=== PATIENT | female | born 1980 | race Caucasian/White ===

== ENCOUNTER 2018-11-10 21:02 | Emergency (ER) | payer MEDICAID, OTHER ==
--- NOTE | 2018-11-10 21:33 | ED Physician Documentation ---
PD HPI ABD PAIN - Stated complaint Stated Complaint: ABD PX - Chief complaint Chief Complaint: Abd Pain - History obtained from History obtained from: Patient - History of Present Illness Timing - onset: Today Timing - duration: Hours Timing - details: Abrupt onset, Still present Quality: Cramping, Aching, Pain Location: RUQ, Epigastric Radiation: Upper back Improved by: No: Vomiting Worsened by: Eating Associated symptoms: Nausea, Vomiting. No: Fever, Diarrhea, Constipation, Dysuria Similar symptoms before: No diagnosis (has had similar less severe and briefer episodes in the past. No diagnosis and had not seen PCP about them. Thought it was "heartburn" or so.) Recently seen: Surgery (surgery left foot/ankle 3 months ago.) Review of Systems Constitutional: denies: Fever, Chills, Myalgias Nose: denies: Rhinorrhea / runny nose, Congestion Throat: denies: Sore throat Cardiac: denies: Chest pain / pressure, Palpitations Respiratory: denies: Cough GI: reports: Abdominal Pain, Nausea, Vomiting. denies: Constipation, Diarrhea, Bloody / black stool : denies: Dysuria, Frequency Skin: denies: Rash, Lesions Musculoskeletal: reports: Back pain Neurologic: reports: Generalized weakness. 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 : None HEENT: None Psych: None Musculoskeletal: Osteoarthritis, Other Derm: None - Past Surgical History Past Surgical History: Yes /INSOLE FILLER: section, Mastectomy HEENT: Tonsil/Adenoidectomy - Present Medications Home Medications: Ambulatory Orders Medication Instructions Recorded Confirmed Ondansetron Odt [Zofran] 4 mg TL Q6H PRN #10 tablet 01/22/16 02/03/16 oxyCODONE/ACET 5/325 [Percocet 5 1 each PO Q4-6H PRN #15 tablet 01/22/16 01/29/16 mg/325 mg] oxyCODONE/ACET 5/325 [Percocet 5 1 - 2 tab PO Q4-6H PRN #20 tablet 01/23/16 02/03/16 mg/325 mg] Ibuprofen 200 mg PO Q6HR 02/03/16 02/03/16 LORazepam [Ativan] 0.5 mg PO Q8H PRN #7 tablet 02/07/16 Oxycodone HCl/Acetaminophen 1 - 2 each PO Q6H PRN #14 tablet 02/07/16 [Percocet 5-325 mg Tablet] Dicyclomine [Bentyl] 10 mg PO QID PRN #20 capsule 11/11/18 Ondansetron Odt [Zofran] 4 mg TL Q6H PRN #10 tablet 11/11/18 Oxycodone HCl/Acetaminophen 1 - 2 each PO Q6H PRN #20 tablet 11/11/18 [Percocet 5-325 mg Tablet] - Allergies Allergies/Adverse Reactions: Allergies Allergy/AdvReac Type Severity Reaction Status Date / Time iv contrast Allergy Unknown Uncoded 11/10/18 21:10 - Social History Does the pt smoke?: No Smoking Status: Never smoker Does the pt drink ETOH?: Yes Does the pt have substance abuse?: No - Immunizations Immunizations are current?: Yes - POLST Patient has POLST: No PD ED PE NORMAL - Vitals Vital signs reviewed: Yes - General General: Alert and oriented X 3, Well developed/nourished, Other (appears uncomfortable, holding upper abd. ) - HEENT HEENT: Pharynx benign - Neck Neck: Supple, no meningeal sign, No adenopathy - Cardiac Cardiac: RRR (slightly tachy.), No murmur - Respiratory Respiratory: Clear bilaterally - Abdomen Abdomen: Soft, Non distended, No organomegaly, Other (decreased bowel sounds. RUQ and epigastric tender with guarding. No percussion tenderness. ) - Female Female : Deferred - Rectal Rectal: Deferred - Back Back: No CVA TTP - Derm Derm: Normal color, Warm and dry - Extremities Extremities: No deformity, No tenderness to palpate - Neuro Neuro: Alert and oriented X 3, No motor deficit, Normal speech Results - Vitals Vitals: Vital Signs - 24 hr 11/10/18 11/10/18 11/10/18 21:06 22:30 23:15 Temperature 36.5 C Heart Rate 105 H 84 82 Respiratory 20 16 18 Rate Blood Pressure 143/91 H 106/74 114/100 H O2 Saturation 7 L 96 97 11/11/18 11/11/18 00:23 01:34 Temperature 36.5 C Heart Rate 74 74 Respiratory 16 18 Rate Blood Pressure 119/74 123/70 O2 Saturation 97 97 Oxygen O2 Source Room air - Labs Labs: Laboratory Tests 11/10/18 11/10/18 11/10/18 22:00 22:00 22:00 WBC 13.7 H RBC 4.43 Hgb 15.4 Hct 43.7 MCV 98.9 MCH 34.7 H MCHC 35.1 RDW 12.7 Plt Count 233 MPV 9.3 Neut # (Auto) 9.6 H Lymph # (Auto) 2.8 [place] # (Auto) 0.6 Eos # (Auto) 0.6 Baso # (Auto) 0.0 Absolute Nucleated RBC 0.01 Nucleated RBC % 0.1 Sodium 137 Potassium 3.6 Chloride 102 Carbon Dioxide 26 Anion Gap 9.0 BUN 14 Creatinine 0.7 Estimated GFR (MDRD) 93 Glucose 123 H Calcium 9.9 Total Bilirubin 0.8 AST 24 ALT 30 Alkaline Phosphatase 81 Total Protein 8.0 Albumin 5.0 Globulin 3.0 Albumin/Globulin Ratio 1.7 Lipase 40 Urine Color YELLOW Urine Clarity CLOUDY Urine pH 6.0 Ur Specific [place] >=1.030 H Urine Protein NEGATIVE Urine Glucose (UA) NEGATIVE Urine Ketones NEGATIVE Urine Occult Blood LARGE H Urine Nitrite NEGATIVE Urine Bilirubin NEGATIVE Urine Urobilinogen 0.2 (NORMAL) Ur Leukocyte Esterase NEGATIVE Urine RBC 6-10 H Urine WBC 0-3 Ur Squamous Epith Cells FEW Squamous Urine Bacteria Rare Ur Microscopic Review INDICATED Urine Culture Comments NOT INDICATED Urine HCG, Qual NEGATIVE - Rads (name of study) abd U/S Radiology: Prelim report reviewed (gallstones, with thickened gallbladder wall 8 mm. No surrounding fluid. CBD normal. ) PD MEDICAL DECISION MAKING - ED course Complexity details: reviewed results, re-evaluated patient (She is much improved with medicines. She still has some right upper quadrant tenderness. She does not have peritoneal signs on exam. We talked about possibly observation in the hospital and potential surgical consultation versus home with surgical referral. She states she is improved enough to want to try going home and will follow up with the surgery. To return if worsening symptoms as she seems to be in the inflammatory phase and most likely will improve but could potentially increase to infectious phase of a cholecystitis.), considered differential (Seems likely gallbladder though consider ulcer or pancreatitis.), d/w patient Departure - Departure Disposition: 01 Home, Self Care Clinical Impression: Upper abdominal pain, Cholecystitis, acute Condition: Stable Record reviewed to determine appropriate education?: Yes Instructions: ED Gallbladder Infec Poss Follow-Up: Eduardo Marie MD [Provider Admit Priv/Credential] - Prescriptions: Dicyclomine [Bentyl] 10 mg PO QID PRN #20 capsule PRN Reason: Abdominal Pain Ondansetron Odt [Zofran] 4 mg TL Q6H PRN #10 tablet PRN Reason: Nausea / Vomiting Oxycodone HCl/Acetaminophen [Percocet 5-325 mg Tablet] 1 - 2 each PO Q6H PRN #20 tablet PRN Reason: pain Comments: Stay well-hydrated. Low-fat diet and particularly bland food for the next day and then low-fat generally after that. Return if not improving well in the next day or 2. Ondansetron if needed for nausea. Ibuprofen or naproxen if needed for pains and add Percocet if needed for worse pain. You can try dicyclomine for pain as well which reduces spasming of the gallbladder. Return if not improved well in the next day or 2 of said and otherwise call surgery on Tuesday to make an appointment to discuss potential gallbladder surgery. Discharge Date/Time: 11/11/18 02:05
[2018-11-10] MEDS ORDERED: SODIUM CHLORIDE 0.9% 1,000 ML IV ONE (21:47)
[2018-11-10] MEDS ORDERED: MORPHINE 10 MG/ML VIAL IVP STA (21:48)
[2018-11-10] MEDS ORDERED: ONDANSETRON 4 MG/2 ML VIAL IVP STA ×2 (21:48→23:27)
[2018-11-10] MEDS ORDERED: KETOROLAC 15 MG/ML VIAL IVP STA (21:48)
[2018-11-10] MEDS ORDERED: FAMOTIDINE 20 MG/2 ML VIAL IVP STA (21:49)
[2018-11-10 22:25] LABS: BILIRUBIN,URINE NEGATIVE (NEGATIVE); GLUCOSE, URINE (UA) NEGATIVE (NEGATIVE); KETONES,URINE (UA) NEGATIVE (NEGATIVE); LEUKOCYTE ESTERASE, URINE NEGATIVE (NEGATIVE); NITRITE,URINE NEGATIVE (NEGATIVE); OCCULT BLOOD,URINE LARGE (NEGATIVE); PROTEIN,URINE NEGATIVE (NEGATIVE); UROBILINOGEN,URINE 0.2 (NORMAL) E.U./dL (NORMAL)
[2018-11-10 22:28] LABS: CLARITY,URINE CLOUDY (CLEAR); HCG UR QUAL NEGATIVE
[2018-11-10 22:34] LABS: BASOPHILS % (AUTO) 0.3 %; EOSINOPHILS # (AUTO) 0.6 10^3/uL (0.0-0.7); EOSINOPHILS % (AUTO) 4.2 %; HGB - HEMOGLOBIN 15.4 g/dL (12.0-16.0); LYMPHOCYTES # (AUTO) 2.8 10^3/uL (1.5-3.5); LYMPHOCYTES % (AUTO) 20.3 %; MEAN CORPUSCULAR HEMOGLOBIN 34.7 pg (27.0-31.0); MEAN CORPUSCULAR HGB CONC 35.1 g/dL (32.0-36.0); MEAN CORPUSCULAR VOLUME 98.9 fL (81.0-99.0); MEAN PLATELET VOLUME 9.3 fL (7.9-10.8); MONOCYTES # (AUTO) 0.6 10^3/uL (0.0-1.0); MONOCYTES % (AUTO) 4.7 %; NEUTROPHILS # (AUTO) 9.6 10^3/uL (1.5-6.6); NEUTROPHILS % (AUTO) 70.5 %; PLT - PLATELET COUNT 233 10^3/uL (130-450); RED BLOOD COUNT 4.43 10^6/uL (4.20-5.40); RED CELL DISTRIBUTION WIDTH 12.7 % (12.0-15.0); WHITE BLOOD COUNT 13.7 x10^3/uL (4.8-10.8)
[2018-11-10 22:41] LABS: BACTERIA,URINE Rare /HPF (None Seen); SQUAMOUS EPITHELIAL CELL,UR FEW Squamous (<= Few)
[2018-11-10 22:51] LABS: ALBUMIN/GLOBULIN RATIO 1.7 (1.0-2.2); BILIRUBIN,TOTAL 0.8 mg/dL (0.2-1.0); CALCIUM 9.9 mg/dL (8.5-10.3); CREATININE 0.7 mg/dL (0.4-1.0)
--- NOTE | 2018-11-11 00:08 | Ultrasound Report ---
Reason: epigastric/RUQ pain since noonish Procedure Date: 11/10/2018 Accession Number: [id number] / [id number] Procedure: US - Abdomen Limited CPT Code: FULL RESULT: EXAM: ABDOMEN ULTRASOUND LIMITED, RUQ EXAM DATE: 11/10/2018 11:24 PM. CLINICAL HISTORY: Epigastric/RUQ pain since noonish. COMPARISON: None. TECHNIQUE: Real-time scanning was performed with static images obtained. FINDINGS: Liver: Fatty infiltration. 20.4 cm. Main portal vein flow: Hepatopetal. Gallbladder: Wall thickening at 8 mm. Multiple mobile stones in the gallbladder. Gallbladder tenderness with positive sonographic Hammond sign. Biliary System: CBD measures 5 mm. No intrahepatic or extrahepatic ductal dilatation. Other: Right kidney measures 10.3 cm and appears normal. IMPRESSION: 1. Multiple stones in the gallbladder with wall thickening at 8 mm. 2. Positive sonographic Hammond's sign. Suspect cholecystitis. 3. No biliary dilatation seen. 4. Enlarged fatty liver. RADIA
[2018-11-11] MEDS ORDERED: oxyCODONE/ACET 5/325 Prepack 4 PO STA (01:05)
[2018-11-11] MEDS ORDERED: MORPHINE 2 MG/ML CARPUJECT IVP STA (01:05)
[2018-11-11] MEDS ORDERED: ONDANSETRON ODT 4 MG Prepack 2 TL PRN (01:05)
[2018-11-11 01:34] VITALS: BP 123/70
== END 2018-11-11 02:05 | disposition home or self-care (01) ==
LOC: ED 21:02
DX: K81.0 Acute cholecystitis (principal)
CPT/HCPCS: 36415; 76705; 80053; 81001; 81003; 81025; 83690; 85025; 87086; 93005; 96361; 96374; 96375; 96376; 99284

== ENCOUNTER 2018-11-15 11:52 | Day surgery (SDC) | payer MEDICAID ==
[2018-11-15 12:44] LABS: BASOPHILS % (AUTO) 0.5 %; EOSINOPHILS # (AUTO) 0.4 10^3/uL (0.0-0.7); EOSINOPHILS % (AUTO) 5.1 %; HGB - HEMOGLOBIN 14.2 g/dL (12.0-16.0); LYMPHOCYTES # (AUTO) 2.4 10^3/uL (1.5-3.5); MEAN CORPUSCULAR HEMOGLOBIN 34.6 pg (27.0-31.0); MEAN CORPUSCULAR HGB CONC 35.3 g/dL (32.0-36.0); MEAN CORPUSCULAR VOLUME 97.8 fL (81.0-99.0); MEAN PLATELET VOLUME 8.6 fL (7.9-10.8); MONOCYTES # (AUTO) 0.4 10^3/uL (0.0-1.0); MONOCYTES % (AUTO) 4.6 %; NEUTROPHILS # (AUTO) 5.4 10^3/uL (1.5-6.6); NEUTROPHILS % (AUTO) 61.8 %; PLT - PLATELET COUNT 219 10^3/uL (130-450); RED BLOOD COUNT 4.12 10^6/uL (4.20-5.40); WHITE BLOOD COUNT 8.7 x10^3/uL (4.8-10.8)
--- NOTE | 2018-11-15 12:57 | ED Physician Documentation ---
History of Present Illness - Stated complaint Stated Complaint: DEEP PAIN IN STOMACH, IN BACK, NAUSEA - Chief complaint Chief Complaint: Abd Pain - Additonal information Additional information: hx from pt 38 y/o f pshc c section breast mass and orthopedic denies preg to ER 11/10 for RUQ pain had sono showing gallstones + thickened wall but nl CBD, labs showed elev WBC nl bili pt was offered admit vs dc with close outpt fup and chose outpt fup dc on pain meds low fat diet no ab called surgery office and was told she could not be seen without PMD referral has had continued severe pain, nausea, unable to eat, feels hot and cold Review of Systems Constitutional: denies: Fever (feels hot) Cardiac: denies: Chest pain / pressure Respiratory: denies: Dyspnea GI: reports: Abdominal Pain, Nausea. 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: section, Mastectomy HEENT: Tonsil/Adenoidectomy - Present Medications Home Medications: Ambulatory Orders Medication Instructions Recorded Confirmed Ondansetron Odt [Zofran] 4 mg TL Q6H PRN #10 tablet 01/22/16 02/03/16 oxyCODONE/ACET 5/325 [Percocet 5 1 each PO Q4-6H PRN #15 tablet 01/22/16 01/29/16 mg/325 mg] oxyCODONE/ACET 5/325 [Percocet 5 1 - 2 tab PO Q4-6H PRN #20 tablet 01/23/16 02/03/16 mg/325 mg] Ibuprofen 200 mg PO Q6HR 02/03/16 02/03/16 LORazepam [Ativan] 0.5 mg PO Q8H PRN #7 tablet 02/07/16 Oxycodone HCl/Acetaminophen 1 - 2 each PO Q6H PRN #14 tablet 02/07/16 [Percocet 5-325 mg Tablet] Dicyclomine [Bentyl] 10 mg PO QID PRN #20 capsule 11/11/18 Ondansetron Odt [Zofran] 4 mg TL Q6H PRN #10 tablet 11/11/18 Oxycodone HCl/Acetaminophen 1 - 2 each PO Q6H PRN #20 tablet 11/11/18 [Percocet 5-325 mg Tablet] - Allergies Allergies/Adverse Reactions: Allergies Allergy/AdvReac Type Severity Reaction Status Date / Time gabapentin [From Neurontin] Allergy Edema Verified 11/15/18 12:18 iv contrast Allergy Unknown Uncoded 11/15/18 12:17 - Social History Does the pt smoke?: No Smoking Status: Never smoker Does the pt drink ETOH?: Yes Does the pt have substance abuse?: No - Immunizations Immunizations are current?: Yes - POLST Patient has POLST: No PD ED PE NORMAL - Vitals Vital signs reviewed: Yes - Cardiac Cardiac: RRR - Respiratory Respiratory: No respiratory distress - Abdomen Abdomen: Soft, Other (TTP RUQ +/- murphys) - Derm Derm: Normal color - Neuro Neuro: Alert and oriented X 3, No motor deficit Results - Vitals Vitals: Vital Signs - 24 hr 11/15/18 11/15/18 12:11 14:34 Temperature 36.5 C 36.6 C Heart Rate 76 80 Respiratory 16 16 Rate Blood Pressure 127/91 H 118/83 H O2 Saturation 100 97 Oxygen O2 Source Room air - Labs Labs: Laboratory Tests 11/15/18 11/15/18 11/15/18 12:40 12:40 Unknown WBC 8.7 RBC 4.12 L Hgb 14.2 Hct 40.3 MCV 97.8 MCH 34.6 H MCHC 35.3 RDW 13.0 Plt Count 219 MPV 8.6 Neut # (Auto) 5.4 Lymph # (Auto) 2.4 [place] # (Auto) 0.4 Eos # (Auto) 0.4 Baso # (Auto) 0.0 Absolute Nucleated RBC 0.00 Nucleated RBC % 0.0 Sodium 135 Potassium 4.0 Chloride 101 Carbon Dioxide 27 Anion Gap 7.0 BUN 12 Creatinine 0.6 Estimated GFR (MDRD) 111 Glucose 101 H Calcium 9.3 Total Bilirubin 0.4 AST 19 ALT 27 Alkaline Phosphatase 64 Total Protein 7.4 Albumin 4.6 Globulin 2.8 Albumin/Globulin Ratio 1.6 Lipase 33 Urine Color YELLOW Urine Clarity CLEAR Urine pH 6.0 Ur Specific [place] <=1.005 Urine Protein NEGATIVE Urine Glucose (UA) NEGATIVE Urine Ketones NEGATIVE Urine Occult Blood NEGATIVE Urine Nitrite NEGATIVE Urine Bilirubin NEGATIVE Urine Urobilinogen 0.2 (NORMAL) Ur Leukocyte Esterase NEGATIVE Ur Microscopic Review NOT INDICATED Urine Culture Comments NOT INDICATED Urine HCG, Qual 11/15/18 Unknown WBC RBC Hgb Hct MCV MCH MCHC RDW Plt Count MPV Neut # (Auto) Lymph # (Auto) [place] # (Auto) Eos # (Auto) Baso # (Auto) Absolute Nucleated RBC Nucleated RBC % Sodium Potassium Chloride Carbon Dioxide Anion Gap BUN Creatinine Estimated GFR (MDRD) Glucose Calcium Total Bilirubin AST ALT Alkaline Phosphatase Total Protein Albumin Globulin Albumin/Globulin Ratio Lipase Urine Color Urine Clarity Urine pH Ur Specific [place] <=1.005 Urine Protein Urine Glucose (UA) Urine Ketones Urine Occult Blood Urine Nitrite Urine Bilirubin Urine Urobilinogen Ur Leukocyte Esterase Ur Microscopic Review Urine Culture Comments Urine HCG, Qual NEGATIVE PD MEDICAL DECISION MAKING - ED course ED course: cholecystitis on sono 11/10 persistent pain NV since called education faculty member surgeon Dr Marie and he will operate today approx 5 PM yue roche pt to be NPO pt and family updated Departure - Departure Disposition: ED Transfer to [facility] Clinical Impression: Cholecystitis Condition: Good
[2018-11-15 12:58] LABS: ALBUMIN 4.6 g/dL (3.2-5.5); ALBUMIN/GLOBULIN RATIO 1.6 (1.0-2.2); BILIRUBIN,TOTAL 0.4 mg/dL (0.2-1.0); CALCIUM 9.3 mg/dL (8.5-10.3); CREATININE 0.6 mg/dL (0.4-1.0); TOTAL PROTEIN 7.4 g/dL (6.7-8.2)
[2018-11-15 13:06] LABS: BILIRUBIN,URINE NEGATIVE (NEGATIVE); GLUCOSE, URINE (UA) NEGATIVE (NEGATIVE); KETONES,URINE (UA) NEGATIVE (NEGATIVE); LEUKOCYTE ESTERASE, URINE NEGATIVE (NEGATIVE); NITRITE,URINE NEGATIVE (NEGATIVE); OCCULT BLOOD,URINE NEGATIVE (NEGATIVE); PROTEIN,URINE NEGATIVE (NEGATIVE); UROBILINOGEN,URINE 0.2 (NORMAL) E.U./dL (NORMAL)
[2018-11-15 13:08] LABS: CLARITY,URINE CLEAR (CLEAR); HCG UR QUAL NEGATIVE
[2018-11-15] MEDS ORDERED: PIPERACILLIN/TAZOBACTAM 3.375 GM in SODIUM CHLORIDE 0.9% MINIBAG 100 ML IV STA (13:26)
[2018-11-15] MEDS ORDERED: SODIUM CHLORIDE 0.9% 1,000 ML IV ONE ×2 (13:28)
[2018-11-15] MEDS ORDERED: BUPIVACAINE 0.5% PF 30 ML VIAL ONE (13:54)
--- NOTE | 2018-11-15 14:14 | ANESTHESIA ---
Pre-Anesthesia VS, & Labs - Diagnosis Acute Cholecystitis - Procedure Lap Radha Vital Signs: Temp Pulse Resp BP Pulse Ox 36.5 C 76 16 127/91 H 100 11/15/18 12:11 11/15/18 12:11 11/15/18 12:11 11/15/18 12:11 11/15/18 12:11 Height 5 ft 6 in Weight (kg) 95.254 kg Body Mass Index 33.9 - NPO Last Fluid Intake: 0600-crackers Last Food Intake: 1230-H2O - Is Patient ?: No - Lab Results Current Lab Results: Laboratory Tests 11/15/18 12:40: Sodium 135, Potassium 4.0, Chloride 101, Carbon Dioxide 27, Anion Gap 7.0, BUN 12, Creatinine 0.6, Estimated GFR (MDRD) 111, Glucose 101 H, Calcium 9.3, Total Bilirubin 0.4, AST 19, ALT 27, Alkaline Phosphatase 64, Total Protein 7.4, Albumin 4.6, Globulin 2.8, Albumin/Globulin Ratio 1.6, Lipase 33 11/15/18 12:40: WBC 8.7, RBC 4.12 L, Hgb 14.2, Hct 40.3, MCV 97.8, MCH 34.6 H, MCHC 35.3, RDW 13.0, Plt Count 219, MPV 8.6, Neut # (Auto) 5.4, Lymph # (Auto) 2.4, [place] # (Auto) 0.4, Eos # (Auto) 0.4, Baso # (Auto) 0.0, Absolute Nucleated RBC 0.00, Nucleated RBC % 0.0 Fish Bones: 11/15/18 12:40 11/15/18 12:40 Home Medications and Allergies Active Medications Sodium Chloride (Normal Saline 0.9%) 1,000 mls @ 150 mls/hr IV .Q6H40M ONE Stop: 11/15/18 20:07 Ibuprofen 200 mg PO Q6HR 02/03/16 Valium 5mg prn zofran hydrocodone Bentyl Allergies/Adverse Reactions: Allergies Allergy/AdvReac Type Severity Reaction Status Date / Time gabapentin [From Neurontin] Allergy Edema Verified 11/15/18 12:18 iv contrast Allergy Unknown Uncoded 11/15/18 12:17 Anes History & Medical History - Anesthetic History Anesthesia Complications: reports: Post-Operative Nausea/Vomiting - Medical History Cardiovascular: reports: None Pulmonary: reports: None Gastrointestinal: reports: None Urinary: reports: Kidney stones Neuro: reports: None Musculoskeletal: reports: Osteoarthritis, Chronic back pain Endocrine/Autoimmune: reports: None Blood Disorders: reports: None Skin: reports: None Smoking Status: Former smoker (Quit May 2018) Psychosocial: reports: Depression, Anxiety - Surgical History Eyes Ears Nose Throat (EENT): Tonsil/Adenoidectomy Gynecologic: section, Other (Right breast lumpectomy) Orthopedic: Other (Left leg orif) Exam General: Alert, Oriented x3, Cooperative, No acute distress Dental: Poor dentition Mouth Openin Fingerbreadth Neck Mobility: Normal Mallampati classification: II Thyromental Distance: 4-6 cm Respiratory: Lungs clear, Normal breath sounds, No respiratory distress, No accessory muscle use Cardiovascular: Regular rate, Normal S1, Normal S2, No murmurs Mental/Cognitive Status: Alert/Oriented X3, Normal for patient Plan Anesthesia Type: General Consent for Procedure(s) Verified and Reviewed: Yes Code Status: Attempt Resuscitation ASA classification: 2-Mild systemic disease Is this case an emergency?: Yes
[2018-11-15] MEDS ORDERED: SCOPOLAMINE PATCH TOP SCH (15:00)
--- NOTE | 2018-11-15 15:05 | CONSULTATION NOTE ---
Referring Provider Name of Referring Provider:: Dr. Winsome Alarcon Consult Date: 11/15/18 Chief Complaint - Chief Complaint Chief Complaint: Severe unremitting right upper quadrant pain History of Present Illness - Admitted From Admitted From:: Not admitted - outpatient - History Obtained From Records Reviewed: Yes History obtained from: Patient Exam Limitations: None - History of Present Illness HPI Comment/Other: Dr. Winsome Alarcon called and asked that I evaluate this 38-year-old female for recurrent and unremitting right upper quadrant pain associated with gallstones. The patient had been seen in the emergency department on November [address] Eduardo Gama and the plan was to have her seen as an outpatient for elective cholecystectomy. Unfortunately, her symptoms recurred and have persisted for the past 3 days necessitating her admission to the emergency department here [facility]. There was some associated nausea and there c ertainly is some anorexia as the patient is fearful of further pain. She denies constipation, diarrhea, melena, hematemesis, or hematochezia. As an aside I removed her daughter's appendix and her other daughter works [employer], which I frequent. 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 WAITER: reports: section, Other (Right breast lumpectomy) HEENT: reports: Tonsil/Adenoidectomy - POLST Patient has POLST: No Meds/Allgy - Home Medications Home Medications: Ambulatory Orders Medication Instructions Recorded Confirmed Ondansetron Odt [Zofran] 4 mg TL Q6H PRN #10 tablet 01/22/16 02/03/16 oxyCODONE/ACET 5/325 [Percocet 5 1 each PO Q4-6H PRN #15 tablet 01/22/16 01/29/16 mg/325 mg] oxyCODONE/ACET 5/325 [Percocet 5 1 - 2 tab PO Q4-6H PRN #20 tablet 01/23/16 02/03/16 mg/325 mg] Ibuprofen 200 mg PO Q6HR 02/03/16 02/03/16 LORazepam [Ativan] 0.5 mg PO Q8H PRN #7 tablet 02/07/16 Oxycodone HCl/Acetaminophen 1 - 2 each PO Q6H PRN #14 tablet 02/07/16 [Percocet 5-325 mg Tablet] Dicyclomine [Bentyl] 10 mg PO QID PRN #20 capsule 11/11/18 Ondansetron Odt [Zofran] 4 mg TL Q6H PRN #10 tablet 11/11/18 Oxycodone HCl/Acetaminophen 1 - 2 each PO Q6H PRN #20 tablet 11/11/18 [Percocet 5-325 mg Tablet] - Allergies Allergies/Adverse Reactions: Allergies Allergy/AdvReac Type Severity Reaction Status Date / Time gabapentin [From Neurontin] Allergy Edema Verified 11/15/18 12:18 iv contrast Allergy Unknown Uncoded 11/15/18 12:17 Review of Systems - Constitutional Constitutional: denies: Fatigue, Fever, Chills - Eyes Eyes: denies: Pain - Ears, Nose & Throat Ears, Nose & Throat: denies: Ear pain - Cardiovascular Cariovascular: denies: Irregular heart rate, Palpitations, Chest pain - Respiratory Respiratory: denies: Cough - Gastrointestinal Gastrointestinal: reports: Abdominal pain. denies: Constipation, Diarrhea, Change in bowel habits, Rectal bleeding, Black stools - Genitourinary Genitourinary: denies: Dysuria - Musculoskeletal Musculoskeletal: denies: Muscle pain - Integumentary Integumentary: denies: Rash - Neurological Neurological: denies: General weakness, Focal weakness, Headache - Psychiatric Psychiatric: denies: Depression, Anxiety Exam - Vital Signs Reviewed Vital Signs: Yes Vital Signs: Vital Signs x48h Temp Pulse Resp BP Pulse Ox 11/15/18 14:34 36.6 C 80 16 118/83 H 97 11/15/18 12:11 36.5 C 76 16 127/91 H 100 - Physical Exam General Appearance: positive: No acute distress Eyes Bilateral: positive: No lid inflammation, Conjunctivae nml, No scleral icterus ENT: positive: Dry mucous membranes Neck: positive: Nml inspection Respiratory: positive: Chest non-tender Cardiovascular: positive: Regular rate & rhythm Abdomen: positive: Nml bowel sounds, Tenderness (RUQ) Skin: positive: Color nml Extremities: positive: Non-tender, Nml appearance Neurologic/Psychiatric: positive: Oriented x3 Conclusion/Plan - Diagnosis Diagnosis: Acute unremitting biliary colic - Plan Plan: Laparoscopic cholecystectomy, possible open cholecystectomy, possible intraoperative cholangiogran, possible common bile duct exploration. The indications, procedure, alternatives including no surgery, ingestion of Acti gall, possible risks including infection (deep or superficial), bleeding requiring transfusion (with all of its risks), common bile duct injury requring repair and additional surgery, and were fully explained to the patient and all questions answered. I also explained the pathophysiology. I explained that following the surgery I did not want her lifting anything over 15 pounds for 6 weeks to allow for optimal healing and to decrease the likelihood that a hernia would occur. All questions were fully answered. Verbal and written consent was obtained. The patient, in preparation for surgery has been n.p.o. and has already received Zosyn 3.375 g IV piggyback. I asked her to contact me with any surgical questions and her concerns and she stated that she would. I asked her to let me know if there is any way we can make her stay at [facility] more comfortable and she stated that she would let me know. The plan is to do this operation as an outpatient procedure and to discharge her home following the procedure. 45 minutes of [id number] time spent with the patient, over 80% in discussion, coordination of her care, and completion of the requisite paperwork - Lab Results Fish Bones: 11/15/18 12:40 11/15/18 12:40 - Diagnostic Imaging Results Diagnostic Imaging Results: positive: Final report reviewed
[2018-11-15] MEDS ORDERED: BUPIVACAINE 0.5% PF 30 ML VIAL SUBQ ONE (15:46)
[2018-11-15] MEDS ORDERED: SODIUM CHLORIDE 0.9% 800 ML IV ONE (17:01)
[2018-11-15] MEDS ORDERED: LACTATED RINGERS 1,000 ML IV ONE ×2 (17:01→17:12)
--- NOTE | 2018-11-15 18:05 | OPERATIVE REPORT ---
Operative Report - General Procedure Date: 11/15/18 Planned Procedure: Laparoscopic cholecystectomy, possible open cholecystectomy, possible intra Pre-Op Diagnosis: Unremitting biliary colic/cholecystitis Procedure Performed: Laparoscopic cholecystectomy and umbilical herniorrhaphy Post Op Diagnosis: Same plus umbilical hernia - Procedure Note Primary Surgeon: Eduardo Marie MD Anesthesia Provider: Chelsea Garrison CRNA Anesthesia Technique: General ET tube, Local (30 mL of half percent Marcaine) IV Fluids (mL): 1,200 Estimated Blood Loss (mL): 5 Drain/Tube Type: Other (None.) Complications: None. - Other Other Information/Narrative: OPERATIVE DESCRIPTION/REPORT: After verbal and written informed consent was obtained detailing the risks of infection, bleeding with all of its risks including transfusion, common bile duct injury, and the patient was brought to the operative suite and placed in the supine position on the operating room table. Monitoring devices were applied along with TEDs and pneumatic compressive stockings. Care was taken to avoid pressure points. Prophylactic antibiotics were given. An adequate level of general endotracheal anesthesia was established by Chelsea Garrison CRNA. The abdomen was then prepped with ChloraPrep and draped in a sterile fashion. A "time in" then confirmed that the patient was identified with 3 identifiers (name, date and medical record number), the history and physical was in the chart, the signed consent confirming the procedure was in the chart, the patient was in the correct position, the aforementioned prophylactic measures were in place or given, we had the correct personnel and equipment to complete the procedure and that anesthesia, surgery and nursing were given an opportunity to express any concerns. The initial incision was at the umbilicus and dissection to a small umbilical hernia was completed using blunt dissection. The fascia on either side was grasped with a Barbara the peritoneum was grasped and incised using Metzenbaum scissors. In this location, a 12 mm blunt tipped, balloon tipped port was placed and the balloon was inflated to keep the port in position. The abdominal cavity was insufflated with carbon dioxide to steady-state pressure of 15 mmHg. Three additional 5 mm ports were placed in standard location for laparoscopic cholecystectomy (subxiphoid and 2 right subcostal) under direct vision of the 30 degree laparoscope and without incident. The patient was then placed in reverse Trendelenburg position and was rotated slightly to their left. The gallbladder fundus was grasped with an atraumatic grasper. Multiple adhesions had to be taken down by blunt and sharp dissection along with electrocautery. Eventually, we identified the infundibulum, and this was then grasped and retracted inferior and laterally. Dissection was then begun in the angle of Calot. The cystic duct and (slightly medially and posteriorly) cystic artery were clearly identified. The critical view was obtained. Two clips proximally and one clip distally were used to control both the cystic duct and cystic artery. The clips were carefully placed to avoid occluding the juncture with the common bile duct. Both the cystic duct and then the cystic artery were then transected with laparoscopic juliet. The gallbladder was then removed from its fossa in a retrograde fashion using electrocautery. With the 30 degree 5 mm scope in the subxiphoid position, the gallbladder was placed in an EndoCatch bag to be extracted through the 12 mm port site. I irrigated the right upper qu adrant with a liter of warm sterile saline, and the area was aspirated dry. I inspected the gallbladder fossa and there was no bleeding or bile leak. Clips on the cystic duct and cystic artery appeared to be secure. I briefly visually explored the abdomen. There was no other evidence of overt pathology. I injected the port sites at the peritoneal, fascial, and skin levels under direct vision with 0.5% Marcaine. All ports and the EndoCatch containing the gallbladder were removed. Following gallbladder removal, the remaining carbon dioxide was expelled from the abdomen. Please note that during the case photographs were taken prior to the gallbladder being excised, the critical view, and after the gallbladder was excised. The fascia at the umbilicus was reapproximated using 2 [id number] 0 Vicryl sutures thus repairing the umbilical hernia. The skin at each port site was approximated using a subcuticular 4-0 Monocryl. The surgical count of instruments, needles and sponges was reported as correct twice. Mastisol, Steri-Strips and sterile surgical dressings were applied. The patient was then awakened from anesthesia, extubated, and having tolerated the procedure well, was transported to the recovery room. No complications were encountered. A "time out" confirmed the operation performed, the fluids given, the estimated blood loss and anesthesia, surgery and nursing were given an opportunity to express any concerns. Evens disclaimer: This document was created in part using voice recognition technology. Because of the inherent limitations of the system ([employer]'s Dragon Dictate user manual states that the licensee understands that speech recognition is a statistical process and that recognition errors are inherent in the process), occasional same sounding word substitutions and grammatical errors do occur and persist despite proofreading. Please read this document for context.
[2018-11-15] MEDS ORDERED: ONDANSETRON 4 MG/2 ML VIAL IVP PRN (18:08)
[2018-11-15] MEDS ORDERED: HYDROcod/ACETAM 5/325 MG TABLET PO PRN (18:08)
[2018-11-15] MEDS ORDERED: HYDROmorphone 0.5 MG/0.5 ML SYRINGE IVP PRN (18:08)
[2018-11-15] MEDS ORDERED: ONDANSETRON 4 MG/2 ML VIAL IVP ONE (18:12)
[2018-11-15] MEDS ORDERED: GLYCOPYRROLATE 1 MG/5 ML VIAL IVP ONE (18:12)
[2018-11-15] MEDS ORDERED: fentaNYL 250 MCG/5 ML VIAL IVP ONE (18:12)
[2018-11-15] MEDS ORDERED: NEOSTIGMINE 1 MG/1 ML 10 ML MDV IVP ONE (18:12)
[2018-11-15] MEDS ORDERED: ROCURONIUM 50 MG/5 ML VIAL IVP ONE (18:12)
[2018-11-15] MEDS ORDERED: KETOROLAC 30 MG/ML VIAL IVP ONE (18:12)
[2018-11-15] MEDS ORDERED: MIDAZOLAM 2 MG/2 ML VIAL IVP ONE (18:12)
[2018-11-15] MEDS ORDERED: DEXAMETHASONE 4 MG/ML VIAL IVP ONE (18:12)
[2018-11-15] MEDS ORDERED: PROPOFOL 200 MG/20 ML VIAL IVP ONE (18:12)
[2018-11-15] MEDS: fentaNYL 100 MCG/2 ML VIAL ONE ×3 (18:16→18:43)
[2018-11-15] MEDS ORDERED: ACETAMINOPHEN 1,000 MG/100 ML 100 ML IV ONE (18:26)
[2018-11-15] MEDS ORDERED: PROCHLORPERAZINE 10 MG/2 ML VIAL IVP PRN (19:44)
[2018-11-15] MEDS ORDERED: PROCHLORPERAZINE 10 MG/2 ML VIAL ONE (19:52)
[2018-11-15 20:35] VITALS: BP 143/93
== END 2018-11-15 21:20 | disposition home or self-care (01) ==
LOC: ED 11:52 → SDS 14:15 → MS2 19:08 → SDS 21:20
PROVIDERS: ATTEND Surgery
PROC: 0FT44ZZ Resection of Gallbladder, Percutaneous Endoscopic Approach (ICD-10-PCS; principal; 2018-11-15 16:30)
DX: K80.10 Calculus of gallbladder with chronic cholecystitis without obstruction (principal); K82.8 Other specified diseases of gallbladder; K42.9 Umbilical hernia without obstruction or gangrene; Z87.891 Personal history of nicotine dependence
CPT/HCPCS: 36415; 47562; 80053; 81003; 81025; 83690; 85025; 99283; 99284; A9270; J0131; J1170; J3010; J3490; J7120; 81001; 87086

== ENCOUNTER 2018-11-18 09:12 | Emergency (ER) | payer MEDICAID ==
[2018-11-18 09:32] LABS: BILIRUBIN,URINE NEGATIVE (NEGATIVE); GLUCOSE, URINE (UA) 250 mg/dL (NEGATIVE); KETONES,URINE (UA) NEGATIVE (NEGATIVE); LEUKOCYTE ESTERASE, URINE NEGATIVE (NEGATIVE); NITRITE,URINE NEGATIVE (NEGATIVE); OCCULT BLOOD,URINE SMALL (NEGATIVE); PH,URINE 7.5 PH (5.0-7.5); PROTEIN,URINE NEGATIVE (NEGATIVE); UROBILINOGEN,URINE 0.2 (NORMAL) E.U./dL (NORMAL)
[2018-11-18 09:35] LABS: CLARITY,URINE CLEAR (CLEAR)
[2018-11-18] MEDS ORDERED: SODIUM CHLORIDE 0.9% 1,000 ML IV ONE ×2 (09:41)
[2018-11-18] MEDS ORDERED: HYDROmorphone 1 MG/ML CARPUJECT IVP STA ×2 (09:41→12:53)
[2018-11-18] MEDS ORDERED: ONDANSETRON 4 MG/2 ML VIAL IVP STA ×2 (09:41→13:52)
[2018-11-18] MEDS ORDERED: diphenhydrAMINE INJ 50 MG/ML VIAL IVP STA ×2 (09:41→10:56)
[2018-11-18] MEDS ORDERED: methylPREDNISolone SUCCINATE 125 MG/2 ML VIAL IVP STA (09:41)
--- NOTE | 2018-11-18 09:44 | ED Physician Documentation ---
PD HPI ABD PAIN - Stated complaint Stated Complaint: ABD PX - Chief complaint Chief Complaint: Abd Pain - History obtained from History obtained from: Patient, Family - History of Present Illness Pain level max: 8 Pain level now: 8 - Additional information Additional information: 38-year-old female is 2 days status post a laparoscopic cholecystectomy. States started vomiting last night. Also had diarrhea a few times last night. Subjective fever. Pain is mainly in the right upper quadrant. States unable to keep anything down at this time. Nothing makes it better or worse. Review of Systems Ten Systems: 10 systems reviewed and negative Constitutional: denies: Chills Ears: denies: Ear pain Nose: denies: Rhinorrhea / runny nose, Congestion Throat: denies: Sore throat Cardiac: denies: Chest pain / pressure GI: denies: Hematemesis, Bloody / black stool : denies: Now EGA Skin: denies: Rash Musculoskeletal: denies: Neck pain, Back pain Neurologic: denies: Focal weakness, Numbness, Headache PD PAST MEDICAL HISTORY - Past Medical History Cardiovascular: Other Respiratory: None Neuro: None Endocrine/Autoimmune: None GI: None [employer]: None : None HEENT: None Psych: None Musculoskeletal: Osteoarthritis, Other Derm: None - Past Surgical History Past Surgical History: Yes Ortho: Other /[employer]: section, Mastectomy HEENT: Tonsil/Adenoidectomy - Present Medications Home Medications: Ambulatory Orders Medication Instructions Recorded Confirmed Ibuprofen 800 mg PO Q6HR PRN 02/03/16 11/15/18 Oxycodone HCl/Acetaminophen 1 - 2 each PO Q6H PRN #14 tablet 02/07/16 11/15/18 [Percocet 5-325 mg Tablet] Dicyclomine [Bentyl] 10 mg PO QID PRN #20 capsule 11/11/18 11/15/18 Ondansetron Odt [Zofran] 4 mg TL Q6H PRN #10 tablet 11/11/18 11/15/18 ALPRAZolam [Alprazolam] 0.5 mg PO TID PRN 11/15/18 11/15/18 Aspirin 325 mg PO DAILY 11/15/18 11/15/18 Betamethasone Dipropionate 0.5 gm TOP BID 11/15/18 11/15/18 [Betamethasone Diprop Augmented] - Allergies Allergies/Adverse Reactions: Allergies Allergy/AdvReac Type Severity Reaction Status Date / Time gabapentin [From Neurontin] Allergy Edema Verified 11/15/18 12:18 iv contrast Allergy Unknown Uncoded 11/15/18 12:17 - Social History Does the pt smoke?: No Smoking Status: Never smoker Does the pt drink ETOH?: Yes Does the pt have substance abuse?: No - Immunizations Immunizations are current?: Yes - POLST Patient has POLST: No PD ED PE NORMAL - Vitals Vital signs reviewed: Yes - General General: Alert and oriented X 3, No acute distress, Well developed/nourished - HEENT HEENT: PERRL, Moist mucous membranes - Neck Neck: Supple, no meningeal sign - Cardiac Cardiac: RRR - Respiratory Respiratory: No respiratory distress, Clear bilaterally - Abdomen Abdomen: Normal bowel sounds, Soft, Non distended, Other (Tender to palpation right upper quadrant. Incisions are clean dry and intact without signs of infection) - Back Back: No CVA TTP - Derm Derm: Warm and dry - Extremities Extremities: No calf tenderness / cord - Neuro Neuro: Alert and oriented X 3 - Psych Psych: Normal mood, Normal affect Results - Vitals Vitals: Vital Signs - 24 hr 11/18/18 11/18/18 11/18/18 09:21 10:23 11:07 Temperature 36.5 C 36.2 C L Heart Rate 87 67 62 Respiratory 20 16 16 Rate Blood Pressure 149/98 H 134/92 H 147/93 H O2 Saturation 98 98 97 11/18/18 12:51 Temperature Heart Rate 59 L Respiratory 16 Rate Blood Pressure 134/93 H O2 Saturation 96 Oxygen O2 Source Room air - Labs Labs: Laboratory Tests 11/18/18 11/18/18 11/18/18 09:25 09:25 09:45 WBC 4.4 L RBC 3.75 L Hgb 13.0 Hct 36.6 L MCV 97.7 MCH 34.7 H MCHC 35.5 RDW 12.7 Plt Count 173 MPV 8.6 Neut # (Auto) 3.0 Lymph # (Auto) 1.0 L [place] # (Auto) 0.2 Eos # (Auto) 0.1 Baso # (Auto) 0.0 Absolute Nucleated RBC 0.00 Nucleated RBC % 0.0 Sodium Potassium Chloride Carbon Dioxide Anion Gap BUN Creatinine Estimated GFR (MDRD) Glucose Calcium Total Bilirubin AST ALT Alkaline Phosphatase Total Protein Albumin Globulin Albumin/Globulin Ratio Lipase Urine Color YELLOW Urine Clarity CLEAR Urine pH 7.5 Ur Specific [place] 1.010 1.010 Urine Protein NEGATIVE Urine Glucose (UA) 250 H Urine Ketones NEGATIVE Urine Occult Blood SMALL H Urine Nitrite NEGATIVE Urine Bilirubin NEGATIVE Urine Urobilinogen 0.2 (NORMAL) Ur Leukocyte Esterase NEGATIVE Urine RBC 0-5 Urine WBC 0-3 Ur Squamous Epith Cells FEW Squamous Urine Bacteria Rare Ur Microscopic Review INDICATED Urine Culture Comments NOT INDICATED Urine HCG, Qual NEGATIVE 11/18/18 09:45 WBC RBC Hgb Hct MCV MCH MCHC RDW Plt Count MPV Neut # (Auto) Lymph # (Auto) [place] # (Auto) Eos # (Auto) Baso # (Auto) Absolute Nucleated RBC Nucleated RBC % Sodium 138 Potassium 3.6 Chloride 103 Carbon Dioxide 26 Anion Gap 9.0 BUN 8 Creatinine 0.6 Estimated GFR (MDRD) 111 Glucose 146 H Calcium 8.8 Total Bilirubin 0.8 AST 1358 H ALT 1186 H Alkaline Phosphatase 130 H Total Protein 7.2 Albumin 4.1 Globulin 3.1 Albumin/Globulin Ratio 1.3 Lipase 27 Urine Color Urine Clarity Urine pH Ur Specific [place] Urine Protein Urine Glucose (UA) Urine Ketones Urine Occult Blood Urine Nitrite Urine Bilirubin Urine Urobilinogen Ur Leukocyte Esterase Urine RBC Urine WBC Ur Squamous Epith Cells Urine Bacteria Ur Microscopic Review Urine Culture Comments Urine HCG, Qual - Rads (name of study) CT abd/pelvis Radiology: Prelim report reviewed, EMP read contemporaneously, See rad report (Status post cholecystectomy. No biliary ductal dilatation. No abscess collection in the cholecystectomy bed. . Mild right-sided hydronephrosis with prominent right ureter. No stone is identified. Possible 2.5 cm mass in the lower outer quadrant of the left breast. Evaluation with is recommended. ) RUQ US Radiology: Prelim report reviewed, EMP read contemporaneously, See rad report (Status post cholecystectomy. Mild residual inflammatory change in the gallbladder fossa. No abnormal drainable fluid collection. Mild hydronephrosis of the right kidney. ) PD MEDICAL DECISION MAKING - ED course Complexity details: reviewed results, re-evaluated patient, considered differential, d/w patient, d/w family, d/w oracle distribution consultant ED course: Patient is a 38-year-old female 3 days status post laparoscopic cholecystectomy. No acute findings on CT scan to explain her symptoms. Surgery was consulted, Dr. Carter came and evaluated the patient, concern for retained stone, recommended transfer. A attempted to contact [facility] in [place], but they had no beds. I also attempted to contact [facility] but there are GI automation design engineer does not perform ERCPs. I then contacted [facility] in [place] and the GI there recommended an ultrasound. They state if the ultrasound is normal the stone may have passed and she may be able to be discharged home. Patient states that she does know about the possible mass in the left outer quadrant of the left breast. She has had this evaluated in the past. Symptoms resolved in the emergency department. I recontact Dr. Carter and he recommended follow-up in the surgery office on Tuesday or Tuesday for repeat LFTs. She will return sooner if she worsens. Tolerating p.o. without difficulty here. He does not recommend any antibiotics for home. Patient counseled regarding signs and symptoms for which I believe and urgent re- evaluation would be necessary. Patient with good understanding of and agreement to plan and is comfortable going home at this time This document was made in part using voice recognition software. While efforts are made to proofread this document, sound alike and grammatical errors may occur. Departure - Departure Disposition: Home, Self Care Clinical Impression: Postoperative pain, Breast mass, left Condition: Good Instructions: ED Post Op Pain Follow-Up: Cale Carter MD [Provider Admit Priv/Credential] - Eduardo Marie MD [Provider Admit Priv/Credential] - Within 1 week Comments: Return if you worsen. Drink plenty of fluids at home. Follow up with your doctor for a mammogram to evaluate the possible mass your left breast. Follow up with surgery on Tuesday for repeat liver function testing.
[2018-11-18 09:45] LABS: BACTERIA,URINE Rare /HPF (None Seen); RBC,URINE 0-5 /HPF (0-5); SQUAMOUS EPITHELIAL CELL,UR FEW Squamous (<= Few)
[2018-11-18 09:50] LABS: BASOPHILS % (AUTO) 0.7 %; EOSINOPHILS # (AUTO) 0.1 10^3/uL (0.0-0.7); EOSINOPHILS % (AUTO) 1.8 %; LYMPHOCYTES % (AUTO) 22.8 %; MEAN CORPUSCULAR HEMOGLOBIN 34.7 pg (27.0-31.0); MEAN CORPUSCULAR HGB CONC 35.5 g/dL (32.0-36.0); MEAN CORPUSCULAR VOLUME 97.7 fL (81.0-99.0); MEAN PLATELET VOLUME 8.6 fL (7.9-10.8); MONOCYTES # (AUTO) 0.2 10^3/uL (0.0-1.0); MONOCYTES % (AUTO) 5.3 %; NEUTROPHILS % (AUTO) 69.4 %; PLT - PLATELET COUNT 173 10^3/uL (130-450); RED BLOOD COUNT 3.75 10^6/uL (4.20-5.40); RED CELL DISTRIBUTION WIDTH 12.7 % (12.0-15.0); WHITE BLOOD COUNT 4.4 x10^3/uL (4.8-10.8)
[2018-11-18 10:11] LABS: ALBUMIN 4.1 g/dL (3.2-5.5); ALBUMIN/GLOBULIN RATIO 1.3 (1.0-2.2); BILIRUBIN,TOTAL 0.8 mg/dL (0.2-1.0); CALCIUM 8.8 mg/dL (8.5-10.3); CREATININE 0.6 mg/dL (0.4-1.0); TOTAL PROTEIN 7.2 g/dL (6.7-8.2)
[2018-11-18] MEDS ORDERED: IOVERSOL 320 100 ML VIAL IVP ONE ×2 (10:13→15:28)
[2018-11-18 10:22] LABS: HCG UR QUAL NEGATIVE
[2018-11-18] MEDS ORDERED: PIPERACILLIN/TAZOBACTAM 3.375 GM in SODIUM CHLORIDE 0.9% MINIBAG 100 ML IV STA (11:26)
--- NOTE | 2018-11-18 11:43 | CONSULTATION NOTE ---
Referring Provider Name of Referring Provider:: Dr. Santana Consult Date: 11/18/18 Chief Complaint - Chief Complaint Chief Complaint: abdominal pain History of Present Illness - Admitted From Admitted From:: ER - History Obtained From Records Reviewed: yes History obtained from: pt, records Exam Limitations: none - History of Present Illness HPI Comment/Other: 38 yo female who is 3 days s/p lap erlin for symptomatic calculous chronic cholecystitis/biliary colic, who has noted persistent and worsening colicky midepigastric and RUQ pain radiating into her back, beginning immediately postop, similar to preop sx, now associated with fever/chills, diaphoresis, N/V and nonbloody diarrhea. Pain not relieved with oxycodone, nausea/vomiting not relieved with ondansetron. History - Past Medical History Cardiovascular: reports: Other Respiratory: reports: None Neuro: reports: None Endocrine/Autoimmune: reports: None GI: reports: None MEDICAL CLAIMS ASSISTANT: reports: None : reports: None HEENT: reports: None Psych: reports: None Musculoskeletal: reports: Osteoarthritis, Other Derm: reports: None MRSA Hx?: No - Past Surgical History General: reports: Cholecystectomy Ortho: reports: Other /MEDICAL CLAIMS ASSISTANT: reports: section, Mastectomy HEENT: reports: Tonsil/Adenoidectomy - Family & Social History Living arrangement: At home Living Situation: With spouse/s.o. - POLST Patient has POLST: No Meds/Allgy - Home Medications Home Medications: Ambulatory Orders Medication Instructions Recorded Confirmed Ibuprofen 800 mg PO Q6HR PRN 02/03/16 11/15/18 Oxycodone HCl/Acetaminophen 1 - 2 each PO Q6H PRN #14 tablet 02/07/16 11/15/18 [Percocet 5-325 mg Tablet] Dicyclomine [Bentyl] 10 mg PO QID PRN #20 capsule 11/11/18 11/15/18 Ondansetron Odt [Zofran] 4 mg TL Q6H PRN #10 tablet 11/11/18 11/15/18 ALPRAZolam [Alprazolam] 0.5 mg PO TID PRN 11/15/18 11/15/18 Aspirin 325 mg PO DAILY 11/15/18 11/15/18 Betamethasone Dipropionate 0.5 gm TOP BID 11/15/18 11/15/18 [Betamethasone Diprop Augmented] - Allergies Allergies/Adverse Reactions: Allergies Allergy/AdvReac Type Severity Reaction Status Date / Time gabapentin [From Neurontin] Allergy Edema Verified 11/15/18 12:18 iv contrast Allergy Unknown Uncoded 11/15/18 12:17 Review of Systems - Constitutional Constitutional: reports: Fever, Chills, Malaise, Poor appetite, Diaphoresis - Gastrointestinal Gastrointestinal: reports: Abdominal pain, Diarrhea, Nausea, Vomiting Exam - Vital Signs Reviewed Vital Signs: Yes Vital Signs: Vital Signs x48h Temp Pulse Resp BP Pulse Ox 11/18/18 11:07 62 16 147/93 H 97 11/18/18 10:23 67 16 134/92 H 98 11/18/18 09:21 36.5 C 87 20 149/98 H 98 - Physical Exam General Appearance: positive: Moderate distress Eyes Bilateral: positive: Conjunctivae nml, No scleral icterus ENT: positive: ENT inspection nml, Pharynx nml, No signs of dehydration Neck: positive: No JVD. negative: Lymphadenopathy (R), Lymphadenopathy (L) Respiratory: positive: Chest non-tender, No respiratory distress, Rales (fine bibasilar dry rales) Cardiovascular: positive: Regular rate & rhythm, No murmur, No gallop Abdomen: positive: Nml bowel sounds, No distention (unclear/obese), Tenderness (RUQ and epigastric, moderate; incisions healing well), Guarding. negative: Hepatomegaly, Splenomegaly, Mass Skin: positive: Color nml, No rash, Warm, Dry Extremities: positive: No pedal edema. negative: Calf tenderness Neurologic/Psychiatric: positive: Oriented x3 Conclusion/Plan - Diagnosis Diagnosis: signs/sx most consistent with retained common bile duct stone; no evidence of bile leak, bowel injury, bleeding or other postop complication at this time. No evidence of complete biliary obstruction or cholangitis at present. - Plan Plan: MRCP is not available here today. Rec transfer to facility where MRCP and/or ERCP can be performed, with stone extraction if dx confirmed. Discussed with pt, and Dr. Santaan, who agree; he will make arrangements for same. Rec keeping pt NPO, with IVF, analgesics, anti emetics, and antibiotics pending definitive therapy. - Lab Results Fish Bones: 11/18/18 09:45 11/18/18 09:45 Other Lab Results: LFTS; nl bili and alk phos; transaminases in 1200 range; nl lipase - Diagnostic Imaging Results Diagnostic Imaging Results: positive: Read independently Diagnostic Imaging Results Comments: CT abd/pelvis: nl postop findings; no free fluid, free air, or biliary ductal dilatation evident to my interpretation.
--- NOTE | 2018-11-18 11:52 | CT Report ---
Reason: abd pain vomiting, s/p lap erlin 3 days ago Procedure Date: 11/18/2018 Accession Number: [id number] / [id number] Procedure: CT - Abdomen/Pelvis W/ CPT Code: FULL RESULT: EXAM: CT ABDOMEN AND PELVIS EXAM DATE: 11/18/2018 10:38 AM. CLINICAL HISTORY: Abdominal pain. Vomiting. Patient had laparoscopic cholecystectomy 3 days ago. COMPARISONS: 11/10/2018. TECHNIQUE: Routine helical CT imaging was performed through the abdomen and pelvis. IV contrast: OPTI 320 100mL. Enteric contrast: No. Reconstructions: Coronal and sagittal. In accordance with CT protocol optimization, one or more of the following dose reduction techniques were utilized for this exam: automated exposure control, adjustment of mA and/or KV based on patient size, or use of iterative reconstructive technique. FINDINGS: Lung Bases: Unremarkable. Liver: Normal. No masses. Gallbladder/Bile Ducts: Status post cholecystectomy. No biliary ductal dilatation. No walled off fluid collection at the cholecystectomy site to suggest abscess. Spleen: Normal. Pancreas: Normal. Adrenal Glands: Normal. Kidneys: Mild right-sided hydronephrosis. Prominent right ureter. No stone is seen. Small left extrarenal pelvis. Peritoneal Cavity/Bowel: Normal. No free fluid, free air or adenopathy. No masses or acute inflammatory process. The appendix is well visualized and normal. Pelvic Organs: IUD. The bladder and visualized pelvic organs are within normal limits. Vasculature: No aneurysms or other significant abnormality. Bones: No significant abnormality. Other: On the first image, there is a possible 2.5 cm mass in the lower outer quadrant of the left breast. IMPRESSION: 1. Status post cholecystectomy. No biliary ductal dilatation. No abscess collection in the cholecystectomy bed. 2. Mild right-sided hydronephrosis with prominent right ureter. No stone is identified. 3. Possible 2.5 cm mass in the lower outer quadrant of the left breast. Evaluation with is recommended. ROSE The above findings were discussed with Donny Santana by Dr. Candis Dobbins at 11:51 hrs on 11/18/18.
--- NOTE | 2018-11-18 15:37 | Ultrasound Report ---
Reason: RUQ pain Procedure Date: 11/18/2018 Accession Number: [id number] / [id number] Procedure: US - Abdomen Limited CPT Code: FULL RESULT: EXAM: ABDOMEN ULTRASOUND LIMITED, RUQ EXAM DATE: 11/18/2018 02:53 PM. CLINICAL HISTORY: Right upper quadrant abdominal pain. Status post cholecystectomy 3 days ago. COMPARISON: ABDOMEN LIMITED 11/10/2018 11:24 PM ABDOMEN/PELVIS W/ 11/18/2018 10:28 AM. TECHNIQUE: Real-time scanning was performed with static images obtained. FINDINGS: Liver: Normal in size and echotexture. 20.0 cm. Main portal vein flow: Hepatopetal. Gallbladder: Surgically absent. Mild residual inflammation in the gallbladder fossa from recent operation. No abnormal drainable fluid collection. Biliary System: CBD measures 4.5 mm. No intrahepatic or extrahepatic ductal dilatation. Other: Mild hydronephrosis of the right kidney, as seen on the same day CT abdomen/pelvis. No evidence of nephrolithiasis. IMPRESSION: Status post cholecystectomy. Mild residual inflammatory change in the gallbladder fossa. No abnormal drainable fluid collection. Mild hydronephrosis of the right kidney. RADIA
[2018-11-18 16:31] VITALS: BP 142/93
== END 2018-11-18 16:41 | disposition home or self-care (01) ==
LOC: ED 09:12
DX: G89.18 Other acute postprocedural pain (principal); N63.23 Unspecified lump in the left breast, lower outer quadrant; Z90.49 Acquired absence of other specified parts of digestive tract
CPT/HCPCS: 36415; 74177; 76705; 80053; 81001; 81025; 83690; 85025; 96361; 96365; 96375; 96376; 99284; J1170; J1200; Q9967; 81003; 87086

== ENCOUNTER 2018-11-22 12:53 | Outpatient (CLI) | payer MEDICAID ==
[2018-11-22 13:07] LABS: BASOPHILS # (AUTO) 0.1 10^3/uL (0.0-0.1); BASOPHILS % (AUTO) 0.6 %; EOSINOPHILS # (AUTO) 0.4 10^3/uL (0.0-0.7); HGB - HEMOGLOBIN 15.2 g/dL (12.0-16.0); LYMPHOCYTES # (AUTO) 2.1 10^3/uL (1.5-3.5); LYMPHOCYTES % (AUTO) 20.3 %; MEAN CORPUSCULAR HEMOGLOBIN 34.9 pg (27.0-31.0); MEAN CORPUSCULAR HGB CONC 35.9 g/dL (32.0-36.0); MEAN CORPUSCULAR VOLUME 97.2 fL (81.0-99.0); MEAN PLATELET VOLUME 8.5 fL (7.9-10.8); MONOCYTES # (AUTO) 0.5 10^3/uL (0.0-1.0); MONOCYTES % (AUTO) 4.3 %; NEUTROPHILS # (AUTO) 7.4 10^3/uL (1.5-6.6); NEUTROPHILS % (AUTO) 70.8 %; PLT - PLATELET COUNT 230 10^3/uL (130-450); RED BLOOD COUNT 4.35 10^6/uL (4.20-5.40); WHITE BLOOD COUNT 10.4 x10^3/uL (4.8-10.8)
[2018-11-22 13:25] LABS: ALBUMIN 4.8 g/dL (3.2-5.5); ALBUMIN/GLOBULIN RATIO 1.7 (1.0-2.2); BILIRUBIN,TOTAL 0.8 mg/dL (0.2-1.0); CALCIUM 9.4 mg/dL (8.5-10.3); CREATININE 0.7 mg/dL (0.4-1.0); TOTAL PROTEIN 7.6 g/dL (6.7-8.2)
== END 2018-11-22 12:54 | disposition home or self-care (01) ==
LOC: LAB 12:53
PROVIDERS: ATTEND Surgery
DX: R10.11 Right upper quadrant pain (principal)
CPT/HCPCS: 36415; 80053; 83690; 85025

== ENCOUNTER 2018-11-23 08:00 | Outpatient (CLI) | payer MEDICAID | END 2018-11-23 23:59 | LOC: LAB.R 08:00 | PROVIDERS: ATTEND Surgery | DX: R10.11 Right upper quadrant pain (principal) | CPT/HCPCS: 87493 ==

== ENCOUNTER 2018-11-23 11:02 | Outpatient (CLI) | payer MEDICAID ==
--- NOTE | 2018-11-23 13:01 | MRI Report ---
Reason: RUQ POST PRANDIAL PAIN S/O LAP CHOL. Procedure Date: 11/23/2018 Accession Number: [id number] / [id number] Procedure: MRI - MRCP W/O CPT Code: FULL RESULT: EXAM: MR ABDOMEN WITHOUT CONTRAST (MR CHOLANGIOPANCREATOGRAPHY) EXAM DATE: 11/23/2018 12:26 PM. CLINICAL HISTORY: Right upper quadrant postprandial pain status post laparoscopic cholecystectomy. COMPARISON: ABDOMEN/PELVIS W/ 11/18/2018 10:28 AM. TECHNIQUE: Multiplanar breath-hold T1 and T2 sequences obtained through the abdomen on an MR scanner. Dedicated 2D and 3D MRCP sequences obtained through the biliary and pancreatic ducts. No intravenous contrast given. FINDINGS: Lung Bases: The lung bases are unremarkable. The breasts demonstrate cysts bilaterally. Liver: The liver has normal size, morphology and signal. No evidence of mass. The intrahepatic bile ducts appear normal. CBD: The extrahepatic ducts appear normal. The CBD is 5.5 mm in diameter. Distal CBD signal is lost 0.8 cm from the sphincter with a smooth tapering not suggestive of distal calculus. Distal stricture is difficult to exclude, though there is no upstream biliary ductal dilation to suggest this. Gallbladder: Surgically absent. Pancreas: The pancreas appears normal with no mass detected. The pancreatic duct is not well seen. Spleen: The spleen appears normal. Kidneys and Adrenals: The kidneys appear normal with no mass or hydronephrosis. There is a small cyst in the right kidney. No left renal cysts. The adrenals appear normal. Bowel: The small bowel and colon appear normal with no inflammation or obstruction. Retroperitoneum: The retroperitoneal structures appear normal with no mass or lymphadenopathy. IMPRESSION: No choledocholithiasis is detected. No biloma is detected. RADIA
== END 2018-11-23 11:03 | disposition home or self-care (01) ==
LOC: DI 11:02
PROVIDERS: ATTEND Surgery
DX: R10.11 Right upper quadrant pain (principal)
CPT/HCPCS: 74181; 87493

== ENCOUNTER 2019-01-29 10:56 | Emergency (ER) | payer OTHER, MEDICAID ==
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
[2019-01-29] MEDS ORDERED: KETOROLAC 60 MG/2 ML VIAL IM STA (15:15)
[2019-01-29 15:33] VITALS: BP 128/92
== END 2019-01-29 15:34 | disposition home or self-care (01) ==
LOC: ED 10:56
DX: M62.838 Other muscle spasm (principal); T14.8XXA Other injury of unspecified body region, initial encounter; V89.2XXA Person injured in unspecified motor-vehicle accident, traffic, initial encounter; Z79.82 Long term (current) use of aspirin
CPT/HCPCS: 96372; 99282; 99283

== ENCOUNTER 2019-05-11 14:25 | Outpatient (CLI) | payer MEDICAID ==
[2019-05-12 12:33] LABS: CANDIDA GROUP DNA NEGATIVE (NEGATIVE); CANDIDA KRUSEI DNA NEGATIVE (NEGATIVE); TRICHOMONAS VAGINALIS DNA NEGATIVE (NEGATIVE)
== END 2019-05-11 23:59 | disposition home or self-care (01) ==
LOC: LAB.R 14:25
PROVIDERS: ATTEND Obstetrics & Gynecology
DX: Z20.2 Contact with and (suspected) exposure to infections with a predominantly sexual mode of transmission (principal)
CPT/HCPCS: 87661; 87801

== ENCOUNTER 2019-05-11 15:07 | Outpatient (CLI) | payer MEDICAID ==
[2019-05-14 14:32] LABS: HIV AG/AB 4TH GEN NON-REACTIVE (NON-REACTIVE)
[2019-05-15 13:51] LABS: HSV 2 IGG TYPE SPECIFIC AB <0.90 index
== END 2019-05-11 15:08 | disposition home or self-care (01) ==
LOC: LAB 15:07
PROVIDERS: ATTEND Obstetrics & Gynecology
DX: Z20.2 Contact with and (suspected) exposure to infections with a predominantly sexual mode of transmission (principal)
CPT/HCPCS: 81599; 86592; 86695; 86696; 86704; 86706; 86708; 86803; 87340; 87389; 87661; 87801

== ENCOUNTER 2019-08-08 11:04 | Outpatient (CLI) | payer MEDICAID ==
--- NOTE | 2019-08-09 09:49 | XRAY Report ---
Reason: KNEE PAIN RIGHT Procedure Date: 08/08/2019 Accession Number: [id number] / [id number] Procedure: XR - Knee 4 View RT CPT Code: FULL RESULT: EXAM: RIGHT KNEE RADIOGRAPHY EXAM DATE: 08/08/2019 11:21 AM. CLINICAL HISTORY: Knee pain, right. COMPARISON: None. TECHNIQUE: 4 views. FINDINGS: Bones: Normal. No fractures or bone lesions. Joints: No significant narrowing of the joint spaces.. No effusion. No subluxations. Mild tenderness calcification at the superior aspect of the patella and adjacent to the medial femoral condyle. Soft Tissues: Normal. No soft tissue swelling. IMPRESSION: No significant degenerative changes. RADIA
== END 2019-08-08 11:05 | disposition home or self-care (01) ==
LOC: DI 11:04
PROVIDERS: ATTEND Family Medicine
DX: M25.561 Pain in right knee (principal)

== ENCOUNTER 2020-01-28 13:47 | Outpatient (CLI) | payer MEDICAID ==
--- NOTE | 2020-01-28 18:43 | Mammography Report ---
Reason: BREAST LUMP OR MASS Procedure Date: 01/28/2020 Accession Number: [id number] / [id number] Procedure: EVELYN - Diagnostic Dig Bilat CPT Code: Final Report FULL RESULT: EXAM: Diagnostic Dig Bilat, Breast Unilateral Limited Left, Breast Unilateral Limited Right DATE: 01/28/2020 3:33 PM CLINICAL HISTORY: History of bilateral breast reduction surgery and right breast biopsy. History of left breast lumps with ultrasound demonstrating multiple cysts and one solid 23 mm mass 12/19/2018. 6 month ultrasound follow-up was suggested. Patient returns today for follow-up of palpable findings. COMPARISON: Mammogram 12/19/2018, 01/15/2016 and left breast ultrasound 12/19/2018 MAMMOGRAM: TECHNIQUE: (B) - Bilateral CC and MLO views were obtained. PARENCHYMAL PATTERN: (VD) - The breasts demonstrate extremely dense parenchyma bilaterally, limiting the sensitivity of mammography. FINDINGS: Right: There is an area of architectural distortion in the upper inner right breast which appears stable compared with 2019. No tomographic images are available from 2016 for comparison. At least 2 round masses are seen in the upper outer right breast no suspicious microcalcifications or skin thickening. Left: Round masses are again seen in the left upper outer quadrant similar to previous. No suspicious microcalcifications, skin thickening, or architectural distortion. BILATERAL BREAST ULTRASOUND: TECHNIQUE: Real time scanning by the websphere commerce architect with saved static images reviewed. FINDINGS: Right: In the 1:00 position 6 cm from the nipple no mass or other abnormality is seen to account for the architectural distortion seen by mammography. In the 10:00 position 4 cm from the nipple there is an anechoic simple cyst measuring 1.7 x 0.9 x 2 cm. In the 12:00 position 2 cm from the nipple there is a 1.4 x 1.1 x 1.6 cm cyst. Left: In the left upper outer quadrant multiple cysts are seen, the largest 2.7 x 1 x 3.4 cm 3:00 position 4 cm from the nipple, similar to previous. A hypoechoic vascular solid 1.8 x 1.1 x 1.5 cm mass is seen in the 2:00 position 6 cm from the nipple. The lesion appears slightly rounder than on the preceding ultrasound with more lobular margins. IMPRESSION: 1. Right breast: Focal area of architectural distortion upper inner quadrant which may be postsurgical in nature. Several simple cysts upper outer quadrant. Probably benign BI-RADS 3. Suggest follow-up right breast mammogram in 6 months. 2. Left breast: 1.8 x 1.1 x 1.5 cm solid vascular hypoechoic mass with slight change in configuration/margination compared with 12/19/2018. Although this may represent a fibroadenoma suggest ultrasound-guided core biopsy. Suspicious. BI-RADS 4. RECOMMENDATION: (BIOPSY) - ultrasound-guided core biopsy left breast mass 2:00 position 6 cm from the nipple. BI-RADS CATEGORY: (4) - Suspicious. STANDARD QUALIFYING STATEMENTS: 1. This examination was not reviewed with the aid of Computer-Aided Detection (CAD). 2. A negative or benign imaging report should not preclude biopsy if clinically suspicious findings are present. 3. Dense breasts may obscure an underlying neoplasm. 4. This examination was reviewed with the aid of 3D breast imaging (tomosynthesis).
== END 2020-01-28 13:48 | disposition home or self-care (01) ==
LOC: DI 13:47
PROVIDERS: ATTEND Family Medicine
DX: N60.11 Diffuse cystic mastopathy of right breast (principal); N63.21 Unspecified lump in the left breast, upper outer quadrant; N60.12 Diffuse cystic mastopathy of left breast
CPT/HCPCS: 76642; 77066

== ENCOUNTER 2020-02-11 10:51 | Outpatient (CLI) | payer MEDICAID ==
[~2020-02-11 10:51] MED LIST: BUFFERED LIDOCAINE 10 ML SYRINGE ONE
[2020-02-11] MEDS ORDERED: BUFFERED LIDOCAINE 10 ML SYRINGE IU ONE (12:41)
--- NOTE | 2020-02-11 13:19 | Ultrasound Report ---
Reason: ABNORMAL MAMMOGRAM Procedure Date: 02/11/2020 Accession Number: [id number] / [id number] Procedure: US - Biopsy Breast Core CPT Code: Final Report FULL RESULT: PROCEDURE: Ultrasound-guided needle biopsy left breast mass. CLINICAL DATA: Targeted mass measuring 23 mm with smooth margins in the 2 o'clock axis of the left breast. Informed consent was obtained. Using standard aseptic technique, 1% buffered lidocaine was injected into the left breast for local anesthesia. A small lesvia was made in the skin with a #11 blade. A 12-gauge Tethis vacuum-assisted device was used to obtain 3 specimens. A specialized biopsy marker clip was placed into the biopsy cavity under ultrasound guidance. The patient was taken to separate mammography machine and a two-view digital mammography was performed to verify the clip placement and any complications. The mammography showed the biopsy clip to be in the area of interest. The wound was dressed and ice applied. The patient was observed for approximately 15 minutes, then was discharged from diagnostic imaging Department in good condition following instructions on wound care and obtaining biopsy results. The patient is scheduled to receive the biopsy results from the referring physician. The tissue was sent for histologic analysis. IMPRESSION: Ultrasound-guided biopsy of the left breast. AN ADDENDUM WILL BE MADE TO THIS REPORT WHEN PATHOLOGY IS REVIEWED TO ESTABLISH CONCORDANCE.
== END 2020-02-11 10:52 | disposition home or self-care (01) ==
LOC: DI 10:51
PROVIDERS: ATTEND Family Medicine
DX: N63.21 Unspecified lump in the left breast, upper outer quadrant (principal)
CPT/HCPCS: 19083

== ENCOUNTER 2020-03-28 09:50 | Emergency (ER) | payer MEDICAID ==
--- NOTE | 2020-03-28 10:28 | ED Physician Documentation ---
PD HPI NVD - Stated complaint Stated Complaint: NAUSEA - Chief complaint Chief Complaint: General - History obtained from History obtained from: Patient - History of Present Illness Timing - onset: How many weeks ago (2) Timing - duration: Weeks (2) Timing - details: Gradual onset, Still present Associated symptoms: Loss of appetite, Other (nausea and sweats/chills). No: Fever, Abdominal pain, Chest pain Contributing factors: Recent antibiotics. No: Sick contact, Bad food, Travel, Anticoagulated, Diabetes Improved by: Other (nothing) Worsened by: Other (nothing) Similar symptoms before: Has not had sx before Recently seen: Other (Gall bladder out in November, IUD out last month, breast biopsy recently) - Additonal information Additional information: 39-year-old female who is status post cholecystectomy has developed nausea over the past 2 weeks and she feels that she is having trouble controlling her thermoregulation. She is describing turning red feeling overwhelmingly hot without fever and then having chills and sweats. She states that her mother went into menopause when she was in her 60s and she had her last menstrual period on 01 March. She states that it is possible she is . Review of Systems Constitutional: reports: Chills, Weight Loss, Sweats. denies: Fever Eyes: denies: Decreased vision Ears: denies: Ear pain Nose: denies: Rhinorrhea / runny nose, Congestion Throat: denies: Sore throat Cardiac: denies: Chest pain / pressure, Palpitations Respiratory: denies: Dyspnea, Cough GI: reports: Nausea. 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(s) : Retention HEENT: None Psych: None Musculoskeletal: Osteoarthritis, Other Derm: None - Past Surgical History Past Surgical History: Yes General: Cholecystectomy Ortho: Other /DISTRICT MANAGER MAJOR ACCOUNTS SALES: section, Mastectomy HEENT: Tonsil/Adenoidectomy - Present Medications Home Medications: Ambulatory Orders Medication Instructions Recorded Confirmed Ibuprofen 800 mg PO Q6HR PRN 02/03/16 11/15/18 Oxycodone HCl/Acetaminophen 1 - 2 each PO Q6H PRN #14 tablet 02/07/16 11/15/18 [Percocet 5-325 mg Tablet] Dicyclomine [Bentyl] 10 mg PO QID PRN #20 capsule 11/11/18 11/15/18 Ondansetron Odt [Zofran] 4 mg TL Q6H PRN #10 tablet 11/11/18 11/15/18 ALPRAZolam [Alprazolam] 0.5 mg PO TID PRN 11/15/18 11/15/18 Aspirin 325 mg PO DAILY 11/15/18 11/15/18 Betamethasone Dipropionate 0.5 gm TOP BID 11/15/18 11/15/18 [Betamethasone Diprop Augmented] methocarbamoL [Robaxin] 500 mg PO Q6H #20 tablet 01/29/19 Ondansetron Odt [Zofran] 4 mg TL Q6H PRN #10 tablet 03/28/20 - Allergies Allergies/Adverse Reactions: Allergies Allergy/AdvReac Type Severity Reaction Status Date / Time gabapentin [From Neurontin] Allergy Edema Verified 03/28/20 09:59 iv contrast Allergy Unknown Uncoded 03/28/20 09:59 - Social History Does the pt smoke?: No Smoking Status: Never smoker Does the pt drink ETOH?: Yes Does the pt have substance abuse?: No - Immunizations Immunizations are current?: Yes - POLST Patient has POLST: No PD ED PE NORMAL - Vitals Vital signs reviewed: Yes (Hypertensive mild) - General General: Alert and oriented X 3, No acute distress, Well developed/nourished - HEENT HEENT: Atraumatic, PERRL, EOMI - Neck Neck: Supple, no meningeal sign, No bony TTP - Cardiac Cardiac: RRR, No murmur - Respiratory Respiratory: No respiratory distress, Clear bilaterally - Abdomen Abdomen: Soft, Non tender - Back Back: No CVA TTP, No spinal TTP - Derm Derm: Normal color, Warm and dry, No rash - Extremities Extremities: No deformity, No edema - Neuro Neuro: Alert and oriented X 3, superintendent drilling and production 2-12 intact, No motor deficit, No sensory deficit, Normal speech Eye Opening: Spontaneous Motor: Obeys Commands Verbal: Oriented GCS Score: 15 - Psych Psych: Normal mood, Normal affect Results - Vitals Vitals: Vital Signs - 24 hr 03/28/20 03/28/20 09:59 11:38 Temperature 36.4 C L Heart Rate 92 67 Respiratory 16 16 Rate Blood Pressure 122/86 H 122/89 H O2 Saturation 99 100 Oxygen O2 Source Room air - Labs Labs: Laboratory Tests 03/28/20 03/28/20 03/28/20 10:11 10:11 10:40 WBC 6.6 RBC 3.92 L Hgb 13.7 Hct 39.2 MCV 100.0 H MCH 34.9 H MCHC 34.9 RDW 11.6 L Plt Count 176 MPV 10.8 Neut # (Auto) 3.8 Lymph # (Auto) 2.0 Harmon # (Auto) 0.5 Eos # (Auto) 0.3 Baso # (Auto) 0.0 Absolute Nucleated RBC 0.00 Nucleated RBC % 0.0 Sodium Potassium Chloride Carbon Dioxide Anion Gap BUN Creatinine Estimated GFR (MDRD) Glucose Calcium Total Bilirubin AST ALT Alkaline Phosphatase Total Protein Albumin Globulin Albumin/Globulin Ratio Lipase Urine Color YELLOW Urine Clarity CLEAR Urine pH 7.0 Ur Specific [place]bin 1.020 1.020 Urine Protein NEGATIVE Urine Glucose (UA) NEGATIVE Urine Ketones NEGATIVE Urine Occult Blood NEGATIVE Urine Nitrite NEGATIVE Urine Bilirubin NEGATIVE Urine Urobilinogen 1 (NORMAL) Ur Leukocyte Esterase NEGATIVE Urine RBC None Seen Urine WBC 0-3 Ur Squamous Epith Cells NONE SEEN Urine Bacteria None Seen Urine Culture Comments NOT INDICATED Urine HCG, Qual NEGATIVE Urine Opiates Screen NEGATIVE Ur Oxycodone Screen NEGATIVE Urine Methadone Screen NEGATIVE Ur Propoxyphene Screen NEGATIVE Ur Barbiturates Screen NEGATIVE Ur Tricyclics Screen NEGATIVE Ur Phencyclidine Scrn NEGATIVE Ur Amphetamine Screen NEGATIVE U Methamphetamines Scrn NEGATIVE U Benzodiazepines Scrn NEGATIVE Urine Cocaine Screen NEGATIVE U Cannabinoids Screen POSITIVE H 03/28/20 10:40 WBC RBC Hgb Hct MCV MCH MCHC RDW Plt Count MPV Neut # (Auto) Lymph # (Auto) Harmon # (Auto) Eos # (Auto) Baso # (Auto) Absolute Nucleated RBC Nucleated RBC % Sodium 136 Potassium 4.1 Chloride 102 Carbon Dioxide 24 Anion Gap 10.0 BUN 17 Creatinine 0.8 Estimated GFR (MDRD) 79 L Glucose 99 Calcium 9.0 Total Bilirubin 0.8 AST 15 ALT 18 Alkaline Phosphatase 61 Total Protein 7.3 Albumin 4.2 Globulin 3.1 Albumin/Globulin Ratio 1.4 Lipase 39 Urine Color Urine Clarity Urine pH Ur Specific [place]bin Urine Protein Urine Glucose (UA) Urine Ketones Urine Occult Blood Urine Nitrite Urine Bilirubin Urine Urobilinogen Ur Leukocyte Esterase Urine RBC Urine WBC Ur Squamous Epith Cells Urine Bacteria Urine Culture Comments Urine HCG, Qual Urine Opiates Screen Ur Oxycodone Screen Urine Methadone Screen Ur Propoxyphene Screen Ur Barbiturates Screen Ur Tricyclics Screen Ur Phencyclidine Scrn Ur Amphetamine Screen U Methamphetamines Scrn U Benzodiazepines Scrn Urine Cocaine Screen U Cannabinoids Screen PD MEDICAL DECISION MAKING - ED course Complexity details: reviewed old records, reviewed results, re-evaluated patient, considered differential, d/w patient ED course: 39-year-old female with a prior history of common duct bile stone that has passed has developed some nausea and she appears to have developed sweats and ch ills associated with hot flashes. Her laboratory evaluation is otherwise unremarkable she is not does not have urinary tract infection. She is screened for coronavirus and we will provide some Zofran. I did discuss with the patient her cannabis use she downplayed her use of cannabis and I have encouraged her to discontinue this for the time being. Departure - Departure Disposition: 01 Home, Self Care Clinical Impression: Nausea alone Condition: Stable Instructions: ED Nausea Vomiting Follow-Up: GLORIA YO MD [Primary Care Provider] - Prescriptions: Ondansetron Odt [Zofran] 4 mg TL Q6H PRN #10 tablet PRN Reason: Nausea / Vomiting
[2020-03-28 10:41] LABS: BILIRUBIN,URINE NEGATIVE (NEGATIVE); GLUCOSE, URINE (UA) NEGATIVE (NEGATIVE); KETONES,URINE (UA) NEGATIVE (NEGATIVE); LEUKOCYTE ESTERASE, URINE NEGATIVE (NEGATIVE); NITRITE,URINE NEGATIVE (NEGATIVE); OCCULT BLOOD,URINE NEGATIVE (NEGATIVE); PROTEIN,URINE NEGATIVE (NEGATIVE); UROBILINOGEN,URINE 1 (NORMAL) E.U./dL (NORMAL)
[2020-03-28 10:43] LABS: CLARITY,URINE CLEAR (CLEAR)
[2020-03-28 10:44] LABS: MUDS CUTOFF CONCENTRATIONS CUTOFF CONC BELOW:
[2020-03-28 10:45] LABS: BACTERIA,URINE None Seen /HPF (None Seen); RBC,URINE None Seen /HPF (0-5); SQUAMOUS EPITHELIAL CELL,UR NONE SEEN (<= Few)
[2020-03-28 10:45] LABS: BASOPHILS % (AUTO) 0.5 %; EOSINOPHILS # (AUTO) 0.3 10^3/uL (0.0-0.7); EOSINOPHILS % (AUTO) 4.1 %; HGB - HEMOGLOBIN 13.7 g/dL (12.0-16.0); LYMPHOCYTES % (AUTO) 29.5 %; MEAN CORPUSCULAR HEMOGLOBIN 34.9 pg (27.0-31.0); MEAN CORPUSCULAR HGB CONC 34.9 g/dL (32.0-36.0); MEAN PLATELET VOLUME 10.8 fL (7.9-10.8); MONOCYTES # (AUTO) 0.5 10^3/uL (0.0-1.0); MONOCYTES % (AUTO) 7.7 %; NEUTROPHILS # (AUTO) 3.8 10^3/uL (1.5-6.6); NEUTROPHILS % (AUTO) 57.9 %; PLT - PLATELET COUNT 176 10^3/uL (130-450); RED BLOOD COUNT 3.92 10^6/uL (4.20-5.40); RED CELL DISTRIBUTION WIDTH 11.6 % (12.0-15.0); WHITE BLOOD COUNT 6.6 x10^3/uL (4.8-10.8)
[2020-03-28 10:52] LABS: HCG UR QUAL NEGATIVE
[2020-03-28 10:59] LABS: ALBUMIN 4.2 g/dL (3.2-5.5); ALBUMIN/GLOBULIN RATIO 1.4 (1.0-2.2); BILIRUBIN,TOTAL 0.8 mg/dL (0.2-1.0); CREATININE 0.8 mg/dL (0.4-1.0); TOTAL PROTEIN 7.3 g/dL (6.7-8.2)
[2020-03-28 11:00] LABS: AMPHETAMINE SCREEN,URINE NEGATIVE (NEGATIVE); BENZODIAZEPINES SCREEN, URINE NEGATIVE (NEGATIVE); COCAINE SCREEN URINE NEGATIVE (NEGATIVE); METHADONE SCREEN, URINE NEGATIVE (NEGATIVE); METHAMPHETAMINES SCREEN, URINE NEGATIVE (NEGATIVE); OPIATE SCREEN, URINE NEGATIVE (NEGATIVE); OXYCODONE SCREEN, URINE NEGATIVE (NEGATIVE); PROPOXYPHENE SCREEN, URINE NEGATIVE (NEGATIVE); TRICYCLIC ANTIDEPRESSANT,URINE NEGATIVE (NEGATIVE)
[2020-03-28] MEDS ORDERED: ONDANSETRON ODT 4 MG TABLET TL STA (11:12)
[2020-03-28 11:39] VITALS: BP 122/89
== END 2020-03-28 11:56 | disposition home or self-care (01) ==
LOC: ED 09:50
DX: R11.0 Nausea (principal)
CPT/HCPCS: 36415; 80053; 80306; 81001; 81025; 83690; 85025; 99283; 99284; Q0162; 87086

== ENCOUNTER 2022-09-29 14:26 | Emergency (ER) | payer MEDICAID ==
[2022-09-29 14:39] VITALS: BP 150/68
--- NOTE | 2022-09-29 15:29 | ED Physician Documentation ---
History of Present Illness - Stated complaint Stated Complaint: LT SHOULDER INJ - Chief complaint Chief Complaint: Ext Problem - Additonal information Additional information: 42-year-old female presents to the emergency department for evaluation of about 10 days left shoulder pain. 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 Unrelieved by Tylenol. [id number]. No history previous injury Review of Systems Constitutional: reports: Reviewed and negative Throat: reports: Reviewed and negative Cardiac: reports: Reviewed and negative Respiratory: reports: Reviewed and negative Musculoskeletal: reports: Joint pain PD PAST MEDICAL HISTORY - Past Medical History Past Medical History: Yes Cardiovascular: Other Respiratory: None Neuro: None Endocrine/Autoimmune: None GI: None SAND SHOVELER: Miscarriage(s) : Retention HEENT: None Psych: None Musculoskeletal: Osteoarthritis, Other Derm: None - Past Surgical History Past Surgical History: Yes General: Cholecystectomy Ortho: Other /SAND SHOVELER: section, Mastectomy HEENT: Tonsil/Adenoidectomy - Present Medications Home Medications: Ambulatory Orders Medication Instructions Recorded Confirmed Ibuprofen 800 mg PO Q6HR PRN 02/03/16 11/15/18 Oxycodone HCl/Acetaminophen 1 - 2 each PO Q6H PRN #14 tablet 02/07/16 11/15/18 [Percocet 5-325 mg Tablet] Dicyclomine [Bentyl] 10 mg PO QID PRN #20 capsule 11/11/18 11/15/18 Ondansetron Odt [Zofran] 4 mg TL Q6H PRN #10 tablet 11/11/18 11/15/18 ALPRAZolam [Alprazolam] 0.5 mg PO TID PRN 11/15/18 11/15/18 Aspirin 325 mg PO DAILY 11/15/18 11/15/18 Betamethasone Dipropionate 0.5 gm TOP BID 11/15/18 11/15/18 [Betamethasone Diprop Augmented] methocarbamoL [Robaxin] 500 mg PO Q6H #20 tablet 01/29/19 Ondansetron Odt [Zofran] 4 mg TL Q6H PRN #10 tablet 03/28/20 - Allergies Allergies/Adverse Reactions: Allergies Allergy/AdvReac Type Severity Reaction Status Date / Time gabapentin [From Neurontin] Allergy Edema Verified 09/29/22 14:38 iv contrast Allergy Unknown Uncoded 09/29/22 14:38 - Social History Does the pt smoke?: No Smoking Status: Never smoker Does the pt drink ETOH?: Yes Does the pt have substance abuse?: No - Immunizations Immunizations are current?: Yes - POLST Patient has POLST: No PD ED PE EXPANDED - General General: Alert, No acute distress - Extremities Extremities: Right shoulder (Pain at the right AC joint with movement. No obvious deformity ecchymosis or erythema. Normal abduction and abduction to 180 degrees. 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 My interpretation of the x-ray is negative for acute fracture or dislocation. History and exam is most consistent with either sprain or rotator cuff pathology. I did offer Mobic and though she declined that stating she does not tolerate it. I offered her an injection of Dilaudid and she declined that as well. She is discharged home in stable condition. I made the recommendation for PCP follow-up for referral to physical therapy or orthopedics Departure - Departure Disposition: 01 Home, Self Care Clinical Impression: Pain in left shoulder Qualifiers: Chronicity: acute Qualified Code(s): M25.512 - Pain in left shoulder Condition: Stable Record reviewed to determine appropriate education?: Yes Instructions: ED Torn Rotator Cuff Comments: The x-ray of your shoulder does not show an acute fracture however I do suspect that you may have either a bad sprain or a partial rotator cuff tear. You can continue the Tylenol and ibuprofen. Important you follow with the primary care provider you will need referral to an orthopedist or physical therapy.
--- NOTE | 2022-09-29 16:04 | XRAY Report ---
PROCEDURE: Shoulder 3 View LT INDICATIONS: pain TECHNIQUE: 3 views of the shoulder were acquired. COMPARISON: None. FINDINGS: Bones: No acute fracture or dislocation. Soft tissues: No suspicious calcifications. IMPRESSION: No acute radiographic abnormality. If there is high concern for further derangement, consider MRI aron luation. Reviewed by: Koffi Moise MD on 09/29/2022 4:03 PM PST Approved by: Koffi Moise MD on 09/29/2022 4:03 PM [facility] Station ID: [id number]
== END 2022-09-29 15:54 | disposition home or self-care (01) ==
LOC: ED 14:26
DX: M25.512 Pain in left shoulder (principal); X50.9XXA Other and unspecified overexertion or strenuous movements or postures, initial encounter; Y93.H1 Activity, digging, shoveling and raking; Y99.0 Civilian activity done for income or pay
CPT/HCPCS: 99282; 99283